=== PATIENT | female | born 1965 | race Hispanic/Latino ===

== ENCOUNTER 2018-08-14 06:25 | Day surgery (SDC) | payer BC ==
[2018-08-07 15:21] VITALS: BMI 28.3
[2018-08-14 06:54] VITALS: TEMP 98
[2018-08-14] MEDS ORDERED: Propofol 10 mg/ml Inj (20 ML) ONE ×2 (07:53→08:15)
[2018-08-14] MEDS ORDERED: Sodium Chloride 0.9% 1,000 ML IV SCH (09:00)
[2018-08-14 09:20] VITALS: O2SAT 99
[2018-08-14 09:44] VITALS: BP 112/62; PULSE 57; RESP 18
== END 2018-08-14 10:24 | disposition home or self-care (01) ==
LOC: ENDO 06:25
PROVIDERS: ATTEND Specialist
DX: Z12.11 Encounter for screening for malignant neoplasm of colon (principal); K64.8 Other hemorrhoids; K21.0 Gastro-esophageal reflux disease with esophagitis; K29.50 Unspecified chronic gastritis without bleeding; K29.80 Duodenitis without bleeding; B96.81 Helicobacter pylori [H. pylori] as the cause of diseases classified elsewhere; J45.909 Unspecified asthma, uncomplicated; E89.0 Postprocedural hypothyroidism; Z85.850 Personal history of malignant neoplasm of thyroid
CPT/HCPCS: 43239; 45378; 84703; 88305; 88312; 88342; J2001; J2704; J7030

== ENCOUNTER 2018-09-25 14:06 | Emergency (ER) | payer BC ==
[2018-09-25 14:06] VITALS: BMI 28.3
[2018-09-25 14:26] VITALS: TEMP 98.1; O2SAT 99
--- NOTE | 2018-09-25 14:28 | ED PDOC ---
Arrival/HPI - General Chief Complaint: Anxiety Historian: Patient - History of Present Illness Narrative History of Present Illness (Text): 09/25/18 14:23 53 female, pmh including hypothyroidism, psychiatric history of anxiety, nkda, c/o feeling anxiety attack x 1 day. pt. stated that she has been stress out about her job lately, had a anxiety attack, tremor, called the ambulance and stated that she feels better. Pt. has no homicidal or suicidal ideation, no auditory or visual hallucination, refused psychiatric evaluation, stated that she feels better now, no other medical or psychological complaints. Past Medical History - Provider Review Nursing Documentation Reviewed: Yes - Infectious Disease Hx of Infectious Diseases: None - Reproductive Menopause: No - Cardiac Hx Cardiac Disorders: No Hx Pacemaker: No - Endocrine/Metabolic Hx Hypothyroidism: Yes Other/Comment: Thyroid Ca - Hematological/Oncological Hx Blood Transfusions: No Hx Blood Transfusion Reaction: No - Musculoskeletal/Rheumatological Hx Musculoskeletal Disorders: Yes (HIPS) - Psychiatric Hx Emotional Abuse: No Hx Physical Abuse: No Hx Substance Use: No - Surgical History Other/Comment: Thyroidectomy - Anesthesia Hx Anesthesia Reactions: No Hx Malignant Hyperthermia: No - Suicidal Assessment Feels Threatened In Home Enviroment: No Family/Social History - Physician Review Nursing Documentation Reviewed: Yes Family/Social History: Unknown Family HX Smoking Status: Unknown If Ever Smoked Hx Alcohol Use: No Hx Substance Use: No Allergies/Home Meds Allergies/Adverse Reactions: Allergies No Known Allergies Allergy (Verified 08/07/18 15:21) Home Medications: Home Meds Medication Instructions Recorded Confirmed Calcium Carbonate/Vitamin D3 1 tab PO DAILY 08/14/18 08/14/18 [Calcium 500-Vit D3 600 Caplet] Levothyroxine [Synthroid] 106 mcg PO DAILY 08/14/18 08/14/18 Omeprazole 40 mg PO DAILY 08/14/18 08/14/18 Review of Systems - Review of Systems Constitutional: absent: Fatigue, Fevers Eyes: absent: Vision Changes ENT: absent: Hearing Changes Respiratory: absent: SOB, Cough Cardiovascular: absent: Chest Pain Gastrointestinal: absent: Abdominal Pain, Diarrhea, Nausea, Vomiting Musculoskeletal: absent: Arthralgias, Back Pain Skin: absent: Rash, Pruritis Neurological: absent: Headache, Dizziness Psychiatric: absent: Anxiety, Depression, Suicidal Ideation Physical Exam Vital Signs Reviewed: Yes Temperature: Afebrile Blood Pressure: Normal Pulse: Regular Respiratory Rate: Normal Appearance: Positive for: Well-Appearing, Non-Toxic, Comfortable Pain Distress: None Mental Status: Positive for: Alert and Oriented X 3 - Systems Exam Head: Present: Atraumatic, Normocephalic Pupils: Present: PERRL Extroacular Muscles: Present: EOMI Conjunctiva: Present: Normal Mouth: Present: Moist Mucous Membranes Neck: Present: Normal Range of Motion Respiratory/Chest: Present: Clear to Auscultation, Good Air Exchange. No: Respiratory Distress, Accessory Muscle Use Cardiovascular: Present: Regular Rate and Rhythm, Normal S1, S2. No: Murmurs Abdomen: No: Tenderness, Distention, Peritoneal Signs Back: Present: Normal Inspection Upper Extremity: Present: Normal Inspection. No: Cyanosis, Edema Lower Extremity: Present: Normal Inspection. No: Edema Neurological: Present: GCS=15, CN II-XII Intact, Speech Normal Skin: Present: Warm, Dry, Normal Color. No: Rashes Psychiatric: Present: Alert, Oriented x 3, Normal Insight, Normal Concentration. No: Agitated, Depressed Mood, Delusional, Hallucinations, Intoxicated, Lethargic Medical Decision Making ED Course and Treatment: 09/25/18 14:31 -labs -ua/uds -observe and reassess 09/25/18 15:52 -Pt. refused psychiatric evaluation. -Labs are non-significant except TSH is 0.36, subclinical hyperthyroidism with normal free T4. -UA show no UTI -UDS show no acute findings -Discussed labs and thyroid level with the patient, advised her to see her own pmd for medication adjustment as needed. -Discharge home with education on advised your own pmd to monitor the TSH as it is 0.36 with normal T4, follow up with your own pmd and industrial plant custodian within 2 days, return to the ER for any new or worsening signs or symptoms. - PA / [employer] DEVELOPMENT ADVISOR / Resident Statement MD/DO has reviewed & agrees with the documentation as recorded. Disposition/Present on Arrival - Present on Arrival Any Indicators Present on Arrival: No History of DVT/PE: No History of Uncontrolled Diabetes: No Urinary Catheter: No History of Decub. Ulcer: No History Surgical Site Infection Following: None - Disposition Have Diagnosis and Disposition been Completed?: Yes Diagnosis: Subclinical hyperthyroidism Disposition: HOME/ ROUTINE Disposition Time: 15:56 Patient Plan: Discharge Condition: GOOD Additional Instructions: -Discharge home with education on advised your own pmd to monitor the TSH as it is 0.36 with normal T4, follow up with your own pmd and industrial plant custodian within 2 days, return to the ER for any new or worsening signs or symptoms. Referrals: PCP,NO [Primary Care Provider] - Follow up with primary Cam,Katie Saucedo MD [Medical Doctor] - Follow up with primary [facility] [Outside] - Follow up with primary Forms: [employer] (Eritrean), WORK NOTE
[2018-09-25 14:48] LABS: BASO # 0.01 K/mm3 (0.0-2.0); BASO % 0.2 % (0.0-3.0); EOS % 0.7 % (1.5-5.0); HEMOGLOBIN 10.6 g/dL (12.0-16.0); LYMPH # 1.3 (1.2-3.4); MEAN CELL VOLUME 78.8 fl (80.0-105.0); MEAN CORPUSCULAR HEMOGLOBIN 24.7 pg (25.0-35.0); MEAN CORPUSCULAR HGB CONC 31.3 g/dl (31.0-37.0); MONO # 0.4 (0.1-0.6); MONO % 7.3 % (1.0-6.0); RBC 4.3 10^6/uL (3.5-6.1); RED CELL DISTRIBUTION WIDTH 13.3 % (11.5-14.5); WHITE BLOOD COUNT 5.7 10^3/uL (4.5-11.0)
[2018-09-25 14:57] LABS: PH,URINE 6.5 (4.7-8.0); URINE APPEARANCE CLEAR (CLEAR); URINE BILIRUBIN NEGATIVE (NEGATIVE); URINE BLOOD NEGATIVE (NEGATIVE); URINE COLOR STRAW (YELLOW); URINE GLUCOSE (UA) NEGATIVE (NEGATIVE); URINE LEUKOCYTE ESTERASE NEGATIVE Leu/uL (NEGATIVE); URINE PROTEIN NEGATIVE mg/dL (<30 mg/dL); URINE UROBILINOGEN 0.2 E.U./dL (<1 E.U./dL)
[2018-09-25 14:58] LABS: ALB/GLOB RATIO 1.3 (1.1-1.8); ALBUMIN 4.4 g/dL (3.0-4.8); ALT/SGPT 28 U/L (7-56); AST/SGOT 27 U/L (14-36); BLOOD UREA NITROGEN 7 mg/dL (7-21); CALCIUM 9.3 mg/dL (8.4-10.5); GFR NON-AFRICAN AMERICAN > 60
[2018-09-25 15:15] LABS: FREE T4 1.54 ng/dL (0.78-2.19)
[2018-09-25 15:20] LABS: BARBITURATES, UR NEGATIVE (NEGATIVE); BENZODIAZEPINES, UR NEGATIVE (NEGATIVE); OPIATES, UR NEGATIVE (NEGATIVE); PHENCYCLIDINE, UR NEGATIVE (NEGATIVE)
[2018-09-25 16:02] VITALS: BP 138/72; PULSE 82; RESP 16
== END 2018-09-25 16:01 | disposition home or self-care (01) ==
LOC: ED 14:06
DX: E05.90 Thyrotoxicosis, unspecified without thyrotoxic crisis or storm (principal); Z85.850 Personal history of malignant neoplasm of thyroid
CPT/HCPCS: 80053; 81003; 81025; 83735; 84439; 84443; 85025; 99282; G0480